=== PATIENT | male | born 1980 | race Caucasian/White ===

== ENCOUNTER → 2020-12-30 20:18 | Outpatient (CLI) | payer BC | END | disposition home or self-care (01) | LOC: D.LABREF 20:18 | DX: B19.20 Unspecified viral hepatitis C without hepatic coma (principal); R94.5 Abnormal results of liver function studies ==

== ENCOUNTER → 2020-12-31 11:29 | Outpatient (CLI) | payer BC | END | disposition home or self-care (01) | LOC: D.US 11:29 | DX: R79.89 Other specified abnormal findings of blood chemistry (principal); B18.2 Chronic viral hepatitis C ==